=== PATIENT | male | born 1960 | race Caucasian/White ===

== ENCOUNTER 2017-06-17 12:05 | Inpatient (IN) | payer BC ==
[~2017-06-17] VITALS: Ht 182.9 cm; Wt 81.6 kg
[2017-06-17 12:09] VITALS: BP_SYST 102
[2017-06-17] MEDS ORDERED: NS 1000 ML BAG IV ONE (12:30)
[2017-06-17] MEDS ORDERED: VANCOMYCIN HCL 1,000 MG in NS 250 ML IV ONE (12:30)
[2017-06-17] MEDS ORDERED: PIPERACILLIN/TAZO 3.375 GM in NS 50 ML IV ONE (12:45)
[2017-06-17] MEDS ORDERED: PIPERACILLIN/TAZOBACTAM 3.375 GM/VIAL (ZOSYN) IV ONE (13:04)
[2017-06-17 13:28] LABS: CALCIUM 8.8 mg/dL (8.4-11.0); CREATININE 1.86 mg/dL (0.55-1.30); INR 1.5 (0.80-1.20); POTASSIUM 4.8 mmol/L (3.5-5.1); PROTHROMBIN TIME 15.3 SECS (9.5-12.5)
[2017-06-17 13:33] LABS: HEMATOCRIT 35.8 % (36-54); HEMOGLOBIN 11.8 g/dL (14.0-18.0)
[2017-06-17 13:34] LABS: MEAN CORPUSCULAR HEMOGLOBIN 26 pg (27-31); MEAN CORPUSCULAR HGB CONC 33 % (32-36); MEAN CORPUSCULAR VOLUME 78 fL (79.0-98.0); PLATELET COUNT (AUTO) 604 K/uL (130-430); RED CELL DISTRIBUTION WIDTH 14.4 % (9.0-15.0)
[2017-06-17 13:43] LABS: ALBUMIN 1.8 g/dL (3.4-4.8); FREE T4 (FREE THYROXINE) 1.6 ng/dl (0.8-1.5); TOTAL BILIRUBIN 0.7 mg/dL (0.0-1.0)
[2017-06-17 13:44] LABS: THYROID STIMULATING HORMONE 0.54 uIu/mL (0.36-3.74)
[2017-06-17 13:50] LABS: BAND % (MANUAL) 3 % (0-6); LYMPHOCYTES % (MANUAL) 7 % (20-46); MONOCYTES % (MANUAL) 4 % (0-11)
[2017-06-17 13:51] LABS: BASOPHILS % (MANUAL) 0 % (0-2); EOSINOPHILS % (MANUAL) 0 % (0-7)
[2017-06-17] MEDS ORDERED: VANCOMYCIN HCL 1000 MG/VIAL IV ONE (14:07)
[2017-06-17 14:11] LABS: ERYTHROCYTE SEDIMENTATION RATE 86 MM/HR (0-15)
[2017-06-17 14:21] LABS: C-REACTIVE PROTEIN QUANT 46.9 mg/dL (0-0.5)
[2017-06-17] MEDS ORDERED: INSULIN REGULAR, HUMAN 10 UNITS/0.1 ML INJ IVP ONE (15:15)
[2017-06-17] MEDS ORDERED: INSULIN REGULAR, HUMAN 10 UNITS/0.1 ML INJ ONE (15:37)
[2017-06-17 16:39] LABS: BILIRUBIN,URINE NEGATIVE (NEGATIVE); BLOOD, URINE 2+ (NEGATIVE); CLARITY/URINE SL HAZY (CLEAR); COLOR,URINE AMBER (YELLOW); GLUCOSE,URINE 2+ (NEGATIVE); KETONES,URINE TRACE (NEGATIVE); LEUKOCYTE ESTERASE ,URINE NEGATIVE (NEGATIVE); NITRITE, URINE NEGATIVE (NEGATIVE); PH,URINE 5.5 (5.0-8.0); PROTEIN URINE 1+ (NEGATIVE)
[2017-06-17 16:54] LABS: BACTERIA,URINE MODERATE /HPF (None Seen); WBC,URINE 0-3 /HPF (0-3)
[2017-06-17 16:55] LABS: COARSE GRANULAR CASTS,URINE 0-2 /LPF (None Seen); URINE AMORPHOUS URATE 2+ /HPF (None Seen)
[2017-06-17] MEDS ORDERED: COMMUNICATION ORDER XX ONE (17:00)
[2017-06-17] MEDS ORDERED: FAMOTIDINE 20 MG TABLET PO ONE (17:00)
[2017-06-17] MEDS ORDERED: ASPIRIN 81 MG TABLET(ECOTRIN) PO ONE (17:00)
[2017-06-17 17:03] VITALS: BP_SYST 124
[2017-06-17 18:03] LABS: TOTAL IRON BIND. CAPACITY 152 ug/dL (250-450)
[2017-06-17] MEDS: PIPERACILLIN/TAZO 2.25G/DEX-IS 50 ML IV SCH (18:42)
[2017-06-17] MEDS: NACL 0.9% 1,000 ML IV SCH (18:43)
[2017-06-17] MEDS: INSULIN ASPART 100 UNITS/ML, 10 ML VIAL (NovoLOG) SUBCUT PRN ×2 (18:45→21:38)
[2017-06-17 20:00] VITALS: BP_SYST 135
[2017-06-17 23:58] VITALS: BP_SYST 121
[2017-06-18] VITALS (7 sets, daily range): BP systolic 107–156
[2017-06-18] MEDS: PIPERACILLIN/TAZO 2.25G/DEX-IS 50 ML IV SCH ×4 (00:25→18:25)
[2017-06-18] MEDS: INSULIN ASPART 100 UNITS/ML, 10 ML VIAL (NovoLOG) SUBCUT PRN ×4 (06:25→21:45)
[2017-06-18 07:30] LABS: EOSINOPHILS % (AUTO) 0.1 % (0.0-4.0); HEMATOCRIT 29.2 % (36-54); HEMOGLOBIN 9.9 g/dL (14.0-18.0); LYMPHOCYTES # (AUTO) 1.6 K/uL (1.0-5.5); LYMPHOCYTES % (AUTO) 5.3 % (20.5-51.5); MEAN CORPUSCULAR HEMOGLOBIN 26 pg (27-31); MEAN CORPUSCULAR HGB CONC 34 % (32-36); MEAN CORPUSCULAR VOLUME 77 fL (79.0-98.0); MONOCYTES % (AUTO) 6.3 % (1.7-9.3); NEUTROPHILS # (AUTO) 27.4 K/uL (1.8-7.7); NEUTROPHILS % (AUTO) 88.3 % (40.0-70.0); PLATELET COUNT (AUTO) 469 K/uL (130-430); RED BLOOD CELL COUNT(AUTO) 3.79 MIL/uL (4.2-6.2); RED CELL DISTRIBUTION WIDTH 14.4 % (9.0-15.0)
[2017-06-18 07:53] LABS: ALBUMIN 1.3 g/dL (3.4-4.8); BILIRUBIN,DIRECT 0.4 mg/dL (0.0-0.3); CALCIUM 8.1 mg/dL (8.4-11.0); CREATININE 1.23 mg/dL (0.55-1.30); TOTAL BILIRUBIN 0.6 mg/dL (0.0-1.0)
[2017-06-18] MEDS: ASPIRIN 81 MG TABLET(ECOTRIN) PO SCH (08:54)
[2017-06-18] MEDS: FAMOTIDINE 20 MG TABLET PO SCH (08:54)
[2017-06-18] MEDS ORDERED: FERROUS SULFATE 325 MG TABLET.DR PO ONE (11:15)
[2017-06-18] MEDS: BALSAM PERU/CASTOR OIL 60 GM OINT...G. TP SCH (11:56)
[2017-06-18] MEDS: CLINDAMYCIN 600 MG in D5W 50 ML IV SCH ×2 (12:58→17:39)
[2017-06-18] MEDS: NACL 0.9% 1,000 ML IV SCH ×2 (16:26→20:07)
[2017-06-18] MEDS ORDERED: INSULIN GLARGINE 100 UNITS/ML 10 ML VIAL SUBCUT SCH (21:00)
[2017-06-18] MEDS: FERROUS SULFATE 325 MG TABLET.DR PO SCH (21:37)
[2017-06-18] MEDS: ACETAMINOPHEN 325 MG TABLET PO PRN (21:38)
[2017-06-19] MEDS: PIPERACILLIN/TAZO 2.25G/DEX-IS 50 ML IV SCH ×4 (00:22→19:16)
[2017-06-19] MEDS: CLINDAMYCIN 600 MG in D5W 50 ML IV SCH ×4 (00:23→17:34)
[2017-06-19 03:56] VITALS: BP_SYST 100
[2017-06-19 07:05] LABS: BASOPHILS % (AUTO) 0.1 % (0.0-2.0); EOSINOPHILS % (AUTO) 0.1 % (0.0-4.0); HEMATOCRIT 28.7 % (36-54); HEMOGLOBIN 9.6 g/dL (14.0-18.0); LYMPHOCYTES # (AUTO) 1.8 K/uL (1.0-5.5); MEAN CORPUSCULAR HEMOGLOBIN 26 pg (27-31); MEAN CORPUSCULAR HGB CONC 34 % (32-36); MEAN CORPUSCULAR VOLUME 78 fL (79.0-98.0); MONOCYTES # (AUTO) 0.8 K/uL (0.0-1.0); MONOCYTES % (AUTO) 2.2 % (1.7-9.3); NEUTROPHILS # (AUTO) 33.9 K/uL (1.8-7.7); PLATELET COUNT (AUTO) 561 K/uL (130-430); RED CELL DISTRIBUTION WIDTH 14.3 % (9.0-15.0)
[2017-06-19] MEDS: INSULIN ASPART 100 UNITS/ML, 10 ML VIAL (NovoLOG) SUBCUT PRN (07:06)
[2017-06-19 07:13] LABS: CALCIUM 8.1 mg/dL (8.4-11.0); CREATININE 1.18 mg/dL (0.55-1.30); POTASSIUM 3.6 mmol/L (3.5-5.1)
[2017-06-19 07:44] LABS: WHITE BLOOD COUNT (AUTO) 36.5 K/uL (4.8-10.8)
[2017-06-19 08:28] VITALS: BP_SYST 85
[2017-06-19] MEDS ORDERED: CYANOCOBALAMIN 1000 mCg TABLET PO ONE (09:45)
[2017-06-19] MEDS ORDERED: FOLIC ACID 1 MG TABLET PO ONE (09:45)
[2017-06-19 10:22] LABS: NEUTROPHILS % (AUTO) 92.6 % (40.0-70.0)
[2017-06-19] MEDS: POTASSIUM CHLORIDE 10 MEQ in NACL 0.9% 1,000 ML IV SCH (10:37)
[2017-06-19 11:14] LABS: % FREE PSA 8.3 % (.); FREE PSA 0.05 ng/mL; PROSTATE SPECIFIC AG TOTAL 0.6 ng/mL (0.0-4.0)
[2017-06-19] MEDS: FAMOTIDINE 20 MG TABLET PO SCH (11:22)
[2017-06-19] MEDS: ASPIRIN 81 MG TABLET(ECOTRIN) PO SCH (11:22)
[2017-06-19] MEDS: FERROUS SULFATE 325 MG TABLET.DR PO SCH ×2 (11:22→21:24)
[2017-06-19 12:54] VITALS: BP_SYST 132
[2017-06-19] MEDS: FLUCONAZOLE 200 mg/ NS 100 ML IV SCH (14:27)
[2017-06-19 16:44] VITALS: BP_SYST 139
[2017-06-19] MEDS: BALSAM PERU/CASTOR OIL 60 GM OINT...G. TP SCH (17:11)
[2017-06-19 19:45] VITALS: BP_SYST 94
[2017-06-20] MEDS: CLINDAMYCIN 600 MG in D5W 50 ML IV SCH ×5 (00:10→23:48)
[2017-06-20 00:57] VITALS: BP_SYST 91
[2017-06-20] MEDS: PIPERACILLIN/TAZO 2.25G/DEX-IS 50 ML IV SCH ×5 (00:58→23:06)
[2017-06-20] MEDS: POTASSIUM CHLORIDE 10 MEQ in NACL 0.9% 1,000 ML IV SCH ×4 (00:58→17:43)
[2017-06-20 06:42] LABS: HEMATOCRIT 28.3 % (36-54); HEMOGLOBIN 9.5 g/dL (14.0-18.0); MEAN CORPUSCULAR HEMOGLOBIN 26 pg (27-31); MEAN CORPUSCULAR HGB CONC 34 % (32-36); MEAN CORPUSCULAR VOLUME 78 fL (79.0-98.0); PLATELET COUNT (AUTO) 616 K/uL (130-430); RED BLOOD CELL COUNT(AUTO) 3.62 MIL/uL (4.2-6.2); RED CELL DISTRIBUTION WIDTH 14.9 % (9.0-15.0)
[2017-06-20 06:56] LABS: WHITE BLOOD COUNT (AUTO) 31.6 K/uL (4.8-10.8)
[2017-06-20 07:00] LABS: CALCIUM 8.1 mg/dL (8.4-11.0); CREATININE 1.38 mg/dL (0.55-1.30); POTASSIUM 3.8 mmol/L (3.5-5.1)
[2017-06-20 08:13] LABS: BAND % (MANUAL) 8 % (0-6); BASOPHILS % (MANUAL) 0 % (0-2); EOSINOPHILS % (MANUAL) 0 % (0-7); LYMPHOCYTES % (MANUAL) 4 % (20-46); MONOCYTES % (MANUAL) 1 % (0-11)
[2017-06-20] MEDS: CYANOCOBALAMIN 1000 mCg TABLET PO SCH (09:00)
[2017-06-20] MEDS: FOLIC ACID 1 MG TABLET PO SCH (09:00)
[2017-06-20] MEDS: FAMOTIDINE 20 MG TABLET PO SCH (09:00)
[2017-06-20] MEDS: ASPIRIN 81 MG TABLET(ECOTRIN) PO SCH (09:00)
[2017-06-20] MEDS: BALSAM PERU/CASTOR OIL 60 GM OINT...G. TP SCH (09:00)
[2017-06-20] MEDS: FERROUS SULFATE 325 MG TABLET.DR PO SCH ×2 (09:00→20:00)
[2017-06-20 09:11] VITALS: BP_SYST 104
[2017-06-20 11:31] VITALS: BP_SYST 111
[2017-06-20] MEDS: FLUCONAZOLE 200 mg/ NS 100 ML IV SCH (13:40)
[2017-06-20] MEDS ORDERED: LR 1,000 ML IV ONE (15:17)
[2017-06-20] MEDS ORDERED: ePHEDrine sulfate 50 MG/ML VIAL IVP PRN (15:30)
[2017-06-20] MEDS ORDERED: NALBUPHINE HCL 10 MG/ML AMP IVP PRN (15:30)
[2017-06-20] MEDS ORDERED: fentaNYL CITRATE/PF 100 MCG/2 ML AMP IVP PRN (15:30)
[2017-06-20] MEDS ORDERED: DIPHENHYDRAMINE INJ 50 MG/ML VIAL IVP PRN (15:30)
[2017-06-20] MEDS ORDERED: ONDANSETRON HCL 4 MG/2 ML VIAL IVP PRN ×2 (15:30)
[2017-06-20] MEDS ORDERED: NALOXONE HCL 0.4 MG/ML AMP (NARCAN) IVP PRN (15:30)
[2017-06-20] MEDS ORDERED: fentaNYL CITRATE/PF 100 MCG/2 ML AMP IVP ONE (18:35)
[2017-06-20] MEDS ORDERED: ROCURONIUM BROMIDE 10 MG/ML (ZEMURON) IV ONE (18:35)
[2017-06-20] MEDS ORDERED: LR 1,000 ML IV.SOLN IV ONE (18:35)
[2017-06-20] MEDS ORDERED: METOCLOPRAMIDE HCL 10 MG/2 ML VIAL IVP ONE (18:35)
[2017-06-20] MEDS ORDERED: MIDAZOLAM HCL 5 MG/ML VIAL (VERSED) IV ONE (18:35)
[2017-06-20] MEDS ORDERED: SEVOFLURANE 15 MIN GAS INH ONE (18:35)
[2017-06-20] MEDS ORDERED: FLUCONAZOLE 200 mg/ NS 100 mL IVPB IV ONE (18:35)
[2017-06-20] MEDS ORDERED: NS IRRIG SOLN 1000 ML IR ONE (18:35)
[2017-06-20] MEDS ORDERED: PROPOFOL 200MG/ 20ML VIAL (DIPRIVAN) IV ONE (18:35)
[2017-06-20] MEDS: ACETAMINOPHEN 325 MG TABLET PO PRN (20:00)
[2017-06-20] MEDS: ZOLPIDEM TARTRATE 5 MG TABLET PO PRN (20:00)
[2017-06-21] VITALS (7 sets, daily range): BP systolic 116–156
[2017-06-21] MEDS: PIPERACILLIN/TAZO 2.25G/DEX-IS 50 ML IV SCH ×4 (05:27→23:05)
[2017-06-21] MEDS: ACETAMINOPHEN 325 MG TABLET PO PRN (06:01)
[2017-06-21] MEDS: CLINDAMYCIN 600 MG in D5W 50 ML IV SCH ×4 (06:26→23:46)
[2017-06-21 06:47] LABS: BASOPHILS % (AUTO) 0.1 % (0.0-2.0); EOSINOPHILS # (AUTO) 0.1 K/uL (0.0-0.4); EOSINOPHILS % (AUTO) 0.3 % (0.0-4.0); HEMATOCRIT 29.8 % (36-54); HEMOGLOBIN 9.8 g/dL (14.0-18.0); LYMPHOCYTES # (AUTO) 2.6 K/uL (1.0-5.5); LYMPHOCYTES % (AUTO) 10.5 % (20.5-51.5); MEAN CORPUSCULAR HEMOGLOBIN 26 pg (27-31); MEAN CORPUSCULAR HGB CONC 33 % (32-36); MEAN CORPUSCULAR VOLUME 79 fL (79.0-98.0); MONOCYTES # (AUTO) 0.7 K/uL (0.0-1.0); NEUTROPHILS # (AUTO) 20.9 K/uL (1.8-7.7); NEUTROPHILS % (AUTO) 86.1 % (40.0-70.0); PLATELET COUNT (AUTO) 742 K/uL (130-430); RED BLOOD CELL COUNT(AUTO) 3.76 MIL/uL (4.2-6.2); WHITE BLOOD COUNT (AUTO) 24.3 K/uL (4.8-10.8)
[2017-06-21 07:04] LABS: CALCIUM 8.1 mg/dL (8.4-11.0); CREATININE 1.3 mg/dL (0.55-1.30); POTASSIUM 3.7 mmol/L (3.5-5.1)
[2017-06-21] MEDS: FERROUS SULFATE 325 MG TABLET.DR PO SCH ×2 (09:33→20:00)
[2017-06-21] MEDS: BALSAM PERU/CASTOR OIL 60 GM OINT...G. TP SCH (09:33)
[2017-06-21] MEDS: CYANOCOBALAMIN 1000 mCg TABLET PO SCH (09:33)
[2017-06-21] MEDS: FOLIC ACID 1 MG TABLET PO SCH (09:33)
[2017-06-21] MEDS: FAMOTIDINE 20 MG TABLET PO SCH (09:33)
[2017-06-21] MEDS: ASPIRIN 81 MG TABLET(ECOTRIN) PO SCH (09:33)
[2017-06-21] MEDS: POTASSIUM CHLORIDE 10 MEQ in NACL 0.9% 1,000 ML IV SCH (12:08)
[2017-06-21] MEDS: FLUCONAZOLE 200 mg/ NS 100 ML IV SCH (12:11)
[2017-06-21] MEDS: ZOLPIDEM TARTRATE 5 MG TABLET PO PRN (20:00)
[2017-06-21] MEDS: INSULIN ASPART 100 UNITS/ML, 10 ML VIAL (NovoLOG) SUBCUT PRN (20:17)
[2017-06-22] MEDS: POTASSIUM CHLORIDE 10 MEQ in NACL 0.9% 1,000 ML IV SCH ×3 (00:04→20:09)
[2017-06-22 00:42] VITALS: BP_SYST 145
[2017-06-22 04:34] VITALS: BP_SYST 152
[2017-06-22] MEDS: PIPERACILLIN/TAZO 2.25G/DEX-IS 50 ML IV SCH ×4 (05:19→23:05)
[2017-06-22] MEDS: CLINDAMYCIN 600 MG in D5W 50 ML IV SCH ×4 (05:55→23:44)
[2017-06-22] MEDS: BALSAM PERU/CASTOR OIL 60 GM OINT...G. TP SCH (09:00)
[2017-06-22] MEDS: ASPIRIN 81 MG TABLET(ECOTRIN) PO SCH (09:02)
[2017-06-22] MEDS: FERROUS SULFATE 325 MG TABLET.DR PO SCH ×2 (09:02→20:42)
[2017-06-22] MEDS: CYANOCOBALAMIN 1000 mCg TABLET PO SCH (09:02)
[2017-06-22] MEDS: FOLIC ACID 1 MG TABLET PO SCH (09:03)
[2017-06-22] MEDS: FAMOTIDINE 20 MG TABLET PO SCH (09:03)
[2017-06-22] MEDS: MORPHINE 2 MG/ML INJ. SYRINGE IVP PRN (09:11)
[2017-06-22 12:29] VITALS: BP_SYST 145
[2017-06-22] MEDS: FLUCONAZOLE 200 mg/ NS 100 ML IV SCH (14:27)
[2017-06-22 16:33] VITALS: BP_SYST 139
[2017-06-22 20:00] VITALS: BP_SYST 110
[2017-06-22] MEDS: ZOLPIDEM TARTRATE 5 MG TABLET PO PRN (20:42)
[2017-06-22] MEDS: INSULIN ASPART 100 UNITS/ML, 10 ML VIAL (NovoLOG) SUBCUT PRN (20:47)
[2017-06-23] VITALS (7 sets, daily range): BP systolic 111–175
[2017-06-23] MEDS: POTASSIUM CHLORIDE 10 MEQ in NACL 0.9% 1,000 ML IV SCH (02:56)
[2017-06-23] MEDS: PIPERACILLIN/TAZO 2.25G/DEX-IS 50 ML IV SCH ×4 (05:35→23:20)
[2017-06-23] MEDS: CLINDAMYCIN 600 MG in D5W 50 ML IV SCH (06:23)
[2017-06-23] MEDS: FERROUS SULFATE 325 MG TABLET.DR PO SCH ×2 (08:37→21:44)
[2017-06-23] MEDS: CYANOCOBALAMIN 1000 mCg TABLET PO SCH (08:37)
[2017-06-23] MEDS: FOLIC ACID 1 MG TABLET PO SCH (08:37)
[2017-06-23] MEDS: ASPIRIN 81 MG TABLET(ECOTRIN) PO SCH (08:37)
[2017-06-23] MEDS: FAMOTIDINE 20 MG TABLET PO SCH (08:37)
[2017-06-23] MEDS: BALSAM PERU/CASTOR OIL 60 GM OINT...G. TP SCH (09:00)
[2017-06-23] MEDS ORDERED: cloNIDine HCL 0.1 MG TABLET PO PRN (10:15)
[2017-06-23 11:34] LABS: EOSINOPHILS # (AUTO) 0.1 K/uL (0.0-0.4); HEMOGLOBIN 9.8 g/dL (14.0-18.0); MONOCYTES # (AUTO) 0.7 K/uL (0.0-1.0); WHITE BLOOD COUNT (AUTO) 11.3 K/uL (4.8-10.8)
[2017-06-23 11:39] LABS: BASOPHILS % (AUTO) 0.1 % (0.0-2.0); CALCIUM 8.4 mg/dL (8.4-11.0); CREATININE 1.19 mg/dL (0.55-1.30); EOSINOPHILS % (AUTO) 0.9 % (0.0-4.0); HEMATOCRIT 30.5 % (36-54); LYMPHOCYTES # (AUTO) 2.1 K/uL (1.0-5.5); LYMPHOCYTES % (AUTO) 18.6 % (20.5-51.5); MEAN CORPUSCULAR HEMOGLOBIN 25 pg (27-31); MEAN CORPUSCULAR HGB CONC 32 % (32-36); MEAN CORPUSCULAR VOLUME 79 fL (79.0-98.0); MONOCYTES % (AUTO) 6.3 % (1.7-9.3); NEUTROPHILS # (AUTO) 8.4 K/uL (1.8-7.7); NEUTROPHILS % (AUTO) 74.1 % (40.0-70.0); POTASSIUM 4.8 mmol/L (3.5-5.1); RED BLOOD CELL COUNT(AUTO) 3.87 MIL/uL (4.2-6.2)
[2017-06-23 11:42] LABS: PLATELET COUNT (AUTO) 847 K/uL (130-430)
[2017-06-23] MEDS: FLUCONAZOLE 200 mg/ NS 100 ML IV SCH (13:00)
[2017-06-23] MEDS: CHOLECALCIFEROL (VITAMIN D3) 2,000 UNIT TABLET PO SCH (13:01)
[2017-06-24] VITALS (7 sets, daily range): BP systolic 108–134
[2017-06-24] MEDS: PIPERACILLIN/TAZO 2.25G/DEX-IS 50 ML IV SCH ×2 (06:18→15:55)
[2017-06-24] MEDS: FAMOTIDINE 20 MG TABLET PO SCH (10:25)
[2017-06-24] MEDS: CYANOCOBALAMIN 1000 mCg TABLET PO SCH (10:25)
[2017-06-24] MEDS: ASPIRIN 81 MG TABLET(ECOTRIN) PO SCH (10:25)
[2017-06-24] MEDS: CHOLECALCIFEROL (VITAMIN D3) 2,000 UNIT TABLET PO SCH (10:25)
[2017-06-24] MEDS: FERROUS SULFATE 325 MG TABLET.DR PO SCH (10:25)
[2017-06-24] MEDS: BALSAM PERU/CASTOR OIL 60 GM OINT...G. TP SCH (10:27)
[2017-06-24] MEDS: MORPHINE 2 MG/ML INJ. SYRINGE IVP PRN (10:27)
[2017-06-24] MEDS: FOLIC ACID 1 MG TABLET PO SCH (10:27)
[2017-06-24] MEDS: FLUCONAZOLE 200 mg/ NS 100 ML IV SCH (15:56)
== END 2017-06-24 18:36 | DRG 853 ==
LOC: SED 12:05 → STU 15:14 → SMU 21:29 → STU 06-20 17:00 → SMU 06-23 11:34
PROVIDERS: ADMIT Internal Medicine; ATTEND Internal Medicine
PROC: 0Y6H0Z2 Detachment at Right Lower Leg, Mid, Open Approach (ICD-10-PCS; principal; 2017-06-20 14:00)
DX: A41.9 Sepsis, unspecified organism (principal); E43 Unspecified severe protein-calorie malnutrition; M72.6 Necrotizing fasciitis; E11.51 Type 2 diabetes mellitus with diabetic peripheral angiopathy without gangrene; E87.1 Hypo-osmolality and hyponatremia; L03.115 Cellulitis of right lower limb; L97.419 Non-pressure chronic ulcer of right heel and midfoot with unspecified severity; E11.52 Type 2 diabetes mellitus with diabetic peripheral angiopathy with gangrene; D64.9 Anemia, unspecified; E11.9 Type 2 diabetes mellitus without complications; Z89.511 Acquired absence of right leg below knee; F17.210 Nicotine dependence, cigarettes, uncomplicated; Z68.24 Body mass index [BMI] 24.0-24.9, adult; Z22.321 Carrier or suspected carrier of Methicillin susceptible Staphylococcus aureus
CPT/HCPCS: 36415; 36600; 71010; 73552; 73590-TC; 73721; 76770; 80048; 80053; 80076; 81000-TC; 82306; 82607; 82728; 82746; 82803-TC; 82962; 83036; 83540-TC; 83550-TC; 83605; 83735-TC; 84153; 84439; 84443-TC; 85007; 85025; 85027; 85610-TC; 85651-TC; 85730-TC; 86140; 87040-TC; 87070-TC; 87075-TC; 87081; 87086; 87186-TC; 88307; 93005; 93923; 93971; 94010; 94760; 96365; 96366; 96367; 96375; 97110-GP; 97116-GP; 97530-GP; 99285; A6261; J1450; J1815; J2250; J2270; J2543; J2704; J2765; J3010; J3370; J3480; J3490; J7030; J7050; J7060; J7120

== ENCOUNTER 2024-05-27 12:05 | Inpatient (IN) | payer BC ==
[~2024-05-27] VITALS: Ht 182.9 cm; Wt 76.2 kg
[2024-05-27 12:34] VITALS: BP_SYST 122; PULSE 75; RESP 16; TEMP 97.8; O2SAT 95
[2024-05-27] MEDS ORDERED: CYAN100010 PO (12:35)
[2024-05-27] MEDS ORDERED: LOP600 PO (12:35)
[2024-05-27] MEDS ORDERED: [UNRECOGNIZED DRUG - OTHER] IJ (12:35)
[2024-05-27] MEDS ORDERED: NOR10 PO (12:35)
[2024-05-27] MEDS ORDERED: LIP40 PO (12:35)
[2024-05-27 15:22] LABS: BASOPHILS % (AUTO) 0.1 % (0.0-2.0); EOSINOPHILS % (AUTO) 0.1 % (0.0-4.0); HEMATOCRIT 26.8 % (36-54); HEMOGLOBIN 8.6 g/dL (14.0-18.0); LYMPHOCYTES % (AUTO) 2.7 % (20.5-51.5); MEAN CORPUSCULAR HEMOGLOBIN 27 pg (27-31); MEAN CORPUSCULAR HGB CONC 32 % (32-36); MEAN CORPUSCULAR VOLUME 85 fL (79.0-98.0); MONOCYTES # (AUTO) 1.9 K/uL (0.0-1.0); NEUTROPHILS # (AUTO) 35.5 K/uL (1.8-7.7); NEUTROPHILS % (AUTO) 92.1 % (40.0-70.0); PLATELET COUNT (AUTO) 445 K/uL (130-430); RED BLOOD CELL COUNT(AUTO) 3.14 MIL/uL (4.2-6.2); RED CELL DISTRIBUTION WIDTH 14.1 % (9.0-15.0)
[2024-05-27 15:30] LABS: WHITE BLOOD COUNT (AUTO) 38.5 K/uL (4.8-10.8)
[2024-05-27 15:55] LABS: INR 1.5 (0.80-1.20); PROTHROMBIN TIME 15.5 SECS (9.5-12.5)
[2024-05-27 16:13] LABS: ALANINE AMINOTRANSFERASE 7 U/L (12-78); ALBUMIN 2.6 g/dL (3.4-4.8); ANION GAP 29 (5-15); ASPARTATE AMINOTRANSFERASE 6 U/L (10-37); BILIRUBIN,DIRECT 0.2 mg/dL (0.0-0.3); CARBON DIOXIDE 11 mmol/L (23-29); CHLORIDE 92 mmol/L (98-107); GFR AFRICAN AMERICAN 3 mL/min (>90); GLUCOSE 146 mg/dL (74-106); POTASSIUM 4.7 mmol/L (3.5-5.1); SODIUM SERUM 132 mmol/L (136-145); TOTAL BILIRUBIN 0.4 mg/dL (0.0-1.0); TOTAL PROTEIN, SERUM 7.5 g/dL (6.4-8.3)
[2024-05-27 16:19] LABS: GFR NON AFRICAN-AMERICAN 2 mL/min (>90)
[2024-05-27] MEDS ORDERED: AMLO5TAB92 PO (16:25)
[2024-05-27] MEDS ORDERED: CHOL2000 PO (16:25)
[2024-05-27] MEDS ORDERED: ATOR40TA68 PO (16:25)
[2024-05-27] MEDS ORDERED: GEMF600T89 PO (16:25)
[2024-05-27 16:28] LABS: UREA NITROGEN, BLOOD 191 mg/dL (8-21)
[2024-05-27 16:29] LABS: CREATININE 23.11 mg/dL (0.55-1.30)
[2024-05-27] MEDS ORDERED: PIPERACILLIN/TAZOBACTAM 4.5 GM/VIAL (ZOSYN) IV ONE (16:39)
[2024-05-27] MEDS: PIPERACILLIN/TAZO 4.5GM/DEX-IS 100 ML IV SCH (16:48)
[2024-05-27] MEDS: D5/0.45 NS 1,000 ML IV SCH (17:29)
[2024-05-27 19:43] VITALS: BP_SYST 175; PULSE 78; RESP 20; TEMP 97.9
[2024-05-27 20:30] VITALS: O2SAT 98
[2024-05-27] MEDS ORDERED: NALOXONE HCL 0.4 MG/ML AMP (NARCAN) IVP PRN ×2 (22:00)
[2024-05-27] MEDS: hydrALAZINE HCL 25 MG TABLET PO PRN (22:12)
[2024-05-27] MEDS: HYDROcodone/ACETAMIN 5-325 MG TAB (NORCO/ VICODIN) PO PRN (23:14)
[2024-05-28 01:51] VITALS: BP_SYST 144; PULSE 82; RESP 18; TEMP 97.6; O2SAT 97
[2024-05-28 04:27] LABS: BASOPHILS % (AUTO) 0.1 % (0.0-2.0); EOSINOPHILS # (AUTO) 0.1 K/uL (0.0-0.4); EOSINOPHILS % (AUTO) 0.2 % (0.0-4.0); HEMOGLOBIN 7.9 g/dL (14.0-18.0); LYMPHOCYTES # (AUTO) 1.2 K/uL (1.0-5.5); LYMPHOCYTES % (AUTO) 3.2 % (20.5-51.5); MEAN CORPUSCULAR HEMOGLOBIN 27 pg (27-31); MEAN CORPUSCULAR HGB CONC 32 % (32-36); MEAN CORPUSCULAR VOLUME 85 fL (79.0-98.0); MONOCYTES # (AUTO) 2.1 K/uL (0.0-1.0); MONOCYTES % (AUTO) 5.4 % (1.7-9.3); NEUTROPHILS % (AUTO) 91.1 % (40.0-70.0); PLATELET COUNT (AUTO) 385 K/uL (130-430); RED BLOOD CELL COUNT(AUTO) 2.95 MIL/uL (4.2-6.2); RED CELL DISTRIBUTION WIDTH 13.8 % (9.0-15.0)
[2024-05-28 04:38] LABS: WHITE BLOOD COUNT (AUTO) 38.4 K/uL (4.8-10.8)
[2024-05-28 06:08] LABS: ALBUMIN 2.3 g/dL (3.4-4.8); CALCIUM 7.8 mg/dL (8.4-11.0); PHOSPHORUS 12.7 mg/dL (2.7-4.5); POTASSIUM 4.7 mmol/L (3.5-5.1); TOTAL BILIRUBIN 0.4 mg/dL (0.0-1.0); TOTAL PROTEIN, SERUM 6.7 g/dL (6.4-8.3)
[2024-05-28 06:27] LABS: CREATININE 23.97 mg/dL (0.55-1.30)
[2024-05-28] MEDS: HYDROcodone/ACETAMIN 10-325 MG TAB PO PRN (06:55)
[2024-05-28 07:54] VITALS: BP_SYST 137; PULSE 84; RESP 20; TEMP 97.7; O2SAT 98
[2024-05-28 08:00] VITALS: O2SAT 98
[2024-05-28 10:41] LABS: INR 1.4 (0.80-1.20); PROTHROMBIN TIME 15.1 SECS (9.5-12.5)
[2024-05-28] MEDS: CYANOCOBALAMIN (VITAMIN B-12) 1,000 MCG TABLET PO SCH (10:52)
[2024-05-28] MEDS: GEMFIBROZIL 600 MG TABLET (LOPID) PO SCH (10:53)
[2024-05-28] MEDS: CHOLECALCIFEROL (VITAMIN D3) 2,000 UNIT TABLET PO SCH (10:53)
[2024-05-28] MEDS: amLODIPine BESYLATE 10 MG TABLET PO SCH (10:53)
[2024-05-28] MEDS: LINEZOLID 300 ML IV SCH (10:54)
[2024-05-28] MEDS: CALCIUM ACETATE 667 MG CAP PO SCH (13:10)
[2024-05-28 14:19] VITALS: BP_SYST 142; PULSE 83; RESP 19; TEMP 97.7; O2SAT 98
[2024-05-28 16:50] VITALS: BP_SYST 114; PULSE 71; RESP 18; TEMP 97.5; O2SAT 96
[2024-05-28] MEDS: HEPARIN SODIUM,PORCINE 5,000 UNITS/ML VIAL ONE (18:39)
[2024-05-28] MEDS: HEPARIN SODIUM,PORCINE 5,000 UNITS/ML VIAL IV ONE (18:41)
[2024-05-28 20:00] VITALS: BP_SYST 161; PULSE 83; RESP 18; TEMP 98.4; O2SAT 98
[2024-05-28] MEDS: ATORVASTATIN 20 MG TABLET PO SCH (20:22)
[2024-05-28] MEDS: CEFEPIME 1 GM in D5W 50 ML IV SCH (20:23)
[2024-05-28] MEDS: LORazepam 2 MG/ML VIAL IVP PRN (23:16)
[2024-05-29] VITALS: BP_SYST 102; PULSE 83; RESP 18; TEMP 97.9; O2SAT 97
[2024-05-29] MEDS: INSULIN LISPRO SLIDING SCALE 100 UNITS/ML, 3 ML VIAL (humaLOG) SUBCUT PRN (06:18)
[2024-05-29] MEDS: ONDANSETRON HCL 4 MG/2 ML VIAL IVP PRN (06:56)
[2024-05-29 08:00] VITALS: BP_SYST 102; PULSE 83; RESP 18; TEMP 98.4; O2SAT 96; O2SAT 99
[2024-05-29 08:06] LABS: EOSINOPHILS # (AUTO) 0.1 K/uL (0.0-0.4); EOSINOPHILS % (AUTO) 0.4 % (0.0-4.0); HEMOGLOBIN 7.7 g/dL (14.0-18.0); LYMPHOCYTES # (AUTO) 1.4 K/uL (1.0-5.5); LYMPHOCYTES % (AUTO) 3.4 % (20.5-51.5); MEAN CORPUSCULAR HEMOGLOBIN 27 pg (27-31); MEAN CORPUSCULAR HGB CONC 32 % (32-36); MEAN CORPUSCULAR VOLUME 84 fL (79.0-98.0); MONOCYTES # (AUTO) 2.3 K/uL (0.0-1.0); MONOCYTES % (AUTO) 5.9 % (1.7-9.3); NEUTROPHILS # (AUTO) 35.8 K/uL (1.8-7.7); NEUTROPHILS % (AUTO) 90.3 % (40.0-70.0); PLATELET COUNT (AUTO) 428 K/uL (130-430); RED BLOOD CELL COUNT(AUTO) 2.86 MIL/uL (4.2-6.2)
[2024-05-29 08:14] LABS: WHITE BLOOD COUNT (AUTO) 39.6 K/uL (4.8-10.8)
[2024-05-29 08:15] LABS: ERYTHROCYTE SEDIMENTATION RATE 59 MM/HR (0-15)
[2024-05-29 08:25] LABS: CALCIUM 7.6 mg/dL (8.4-11.0); PHOSPHORUS 6.9 mg/dL (2.7-4.5); POTASSIUM 3.2 mmol/L (3.5-5.1)
[2024-05-29] MEDS: PANTOPRAZOLE SODIUM 40 MG/VIAL (PROTONIX) IVP SCH (09:11)
[2024-05-29 09:27] LABS: CREATININE 15.07 mg/dL (0.55-1.30)
[2024-05-29 11:45] VITALS: BP_SYST 131; PULSE 65; RESP 20; TEMP 97.4; O2SAT 98
[2024-05-29] MEDS: HEPARIN SODIUM,PORCINE 5,000 UNITS/ML VIAL MC ONE (18:06)
[2024-05-29 20:00] VITALS: BP_SYST 130; PULSE 74; RESP 18; TEMP 97.7; O2SAT 97
[2024-05-30] VITALS (7 sets, daily range): BP systolic 122–161; PULSE 71–81; RESP 16–18; TEMP 97–99.1; O2SAT 97–99
[2024-05-30 08:07] LABS: HEMATOCRIT 22.3 % (36-54); HEMOGLOBIN 7.2 g/dL (14.0-18.0); MEAN CORPUSCULAR HEMOGLOBIN 27 pg (27-31); MEAN CORPUSCULAR HGB CONC 32 % (32-36); MEAN CORPUSCULAR VOLUME 83 fL (79.0-98.0); PLATELET COUNT (AUTO) 360 K/uL (130-430); RED BLOOD CELL COUNT(AUTO) 2.68 MIL/uL (4.2-6.2)
[2024-05-30 08:29] LABS: CALCIUM 7.5 mg/dL (8.4-11.0); POTASSIUM 3.4 mmol/L (3.5-5.1)
[2024-05-30 09:07] LABS: WHITE BLOOD COUNT (AUTO) 30.8 K/uL (4.8-10.8)
[2024-05-30 09:10] LABS: CREATININE 12.18 mg/dL (0.55-1.30)
[2024-05-30 11:00] LABS: BASOPHILS % (MANUAL) 0 % (0-2); EOSINOPHILS % (MANUAL) 0 % (0-7); HYPOCHROMASIA SLIGHT; LYMPHOCYTES % (MANUAL) 5 % (20-46); MONOCYTES % (MANUAL) 7 % (0-11); PLATELET ESTIMATE ADEQUATE (ADEQUATE)
[2024-05-30 11:01] LABS: STOMATOCYTES FEW
[2024-05-30] MEDS ORDERED: CALCIUM GLUCONATE 2 GM in NS 100 ML IV ONE (14:00)
[2024-05-30] MEDS: NORMAL SALINE 5 ML DISP.SYRIN IVF SCH (15:14)
[2024-05-30] MEDS: POTASSIUM CHLORIDE 20 MEQ TABLET.ER PO ONE (15:42)
[2024-05-30] MEDS: HEPARIN SODIUM, PORCINE 10,000 UNITS/ 10 ML VIAL MC ONE (15:45)
[2024-05-30] MEDS: HEPARIN SODIUM,PORCINE 5,000 UNITS/ML VIAL MC ONE (17:27)
[2024-05-30] MEDS: CALCIUM GLUC 2 GM/100ML-NACL 100 ML IV ONE (18:32)
[2024-05-31 00:44] VITALS: BP_SYST 155; PULSE 84; RESP 16; TEMP 97.6; O2SAT 94
[2024-05-31 06:17] LABS: ERYTHROCYTE SEDIMENTATION RATE 67 MM/HR (0-15)
[2024-05-31 06:22] LABS: ALBUMIN 1.9 g/dL (3.4-4.8); CALCIUM 8.1 mg/dL (8.4-11.0); CREATININE 7.4 mg/dL (0.55-1.30); PHOSPHORUS 3.8 mg/dL (2.7-4.5); POTASSIUM 3.7 mmol/L (3.5-5.1); TOTAL BILIRUBIN 0.2 mg/dL (0.0-1.0); TOTAL PROTEIN, SERUM 6.2 g/dL (6.4-8.3)
[2024-05-31 06:25] LABS: BASOPHILS % (AUTO) 0.1 % (0.0-2.0); EOSINOPHILS # (AUTO) 0.5 K/uL (0.0-0.4); EOSINOPHILS % (AUTO) 1.9 % (0.0-4.0); HEMATOCRIT 25.9 % (36-54); HEMOGLOBIN 8.4 g/dL (14.0-18.0); LYMPHOCYTES # (AUTO) 1.8 K/uL (1.0-5.5); LYMPHOCYTES % (AUTO) 6.8 % (20.5-51.5); MEAN CORPUSCULAR HEMOGLOBIN 27 pg (27-31); MEAN CORPUSCULAR HGB CONC 32 % (32-36); MEAN CORPUSCULAR VOLUME 84 fL (79.0-98.0); MONOCYTES # (AUTO) 2.4 K/uL (0.0-1.0); NEUTROPHILS # (AUTO) 21.9 K/uL (1.8-7.7); PLATELET COUNT (AUTO) 363 K/uL (130-430); RED BLOOD CELL COUNT(AUTO) 3.09 MIL/uL (4.2-6.2); RED CELL DISTRIBUTION WIDTH 13.5 % (9.0-15.0); WHITE BLOOD COUNT (AUTO) 26.7 K/uL (4.8-10.8)
[2024-05-31 07:46] VITALS: BP_SYST 138; PULSE 74; RESP 16; TEMP 97.7; O2SAT 96
[2024-05-31 08:00] VITALS: O2SAT 96
[2024-05-31 08:12] LABS: NEUTROPHILS % (AUTO) 82.2 % (40.0-70.0)
[2024-05-31 12:00] VITALS: BP_SYST 140; PULSE 80; RESP 17; TEMP 97.8; O2SAT 97
[2024-05-31] MEDS ORDERED: LR 1,000 ML IV.SOLN IV ONE (12:00)
[2024-05-31] MEDS ORDERED: PROPOFOL 200MG/ 20ML VIAL (DIPRIVAN) IV ONE (12:00)
[2024-05-31] MEDS ORDERED: fentaNYL CITRATE/PF 100 MCG/2 ML AMP ONE (12:00)
[2024-05-31] MEDS ORDERED: MIDAZOLAM HCL 2 MG/2 ML VIAL (VERSED) ONE (12:00)
[2024-05-31] MEDS ORDERED: LIDOCAINE HCL IJ ONE (12:00)
[2024-05-31] MEDS ORDERED: BUPIVACAINE /PF 0.25% 10 ML VIAL INJ ONE (12:00)
[2024-05-31] MEDS ORDERED: NS IRRIG SOLN 1000 ML IR ONE (12:00)
[2024-05-31] MEDS ORDERED: [UNRECOGNIZED DRUG - OTHER] IJ ONE (12:00)
[2024-05-31] MEDS ORDERED: MEPERIDINE HCL/PF 25 MG/ML DISP.SYRIN IVP PRN (12:30)
[2024-05-31] MEDS ORDERED: HYDROmorphone 1 MG/ML INJ. CARTRIDGE IVP PRN ×2 (12:30)
[2024-05-31] MEDS ORDERED: ONDANSETRON HCL 4 MG/2 ML VIAL IVP PRN (12:30)
[2024-05-31] MEDS ORDERED: LABETALOL 100 MG/ 20ML VIAL IVP PRN (12:30)
[2024-05-31] MEDS ORDERED: hydrALAZINE HCL 20 MG/ML VIAL IVP PRN (12:30)
[2024-05-31 16:33] VITALS: BP_SYST 139; PULSE 76; RESP 16; TEMP 97.6; O2SAT 97
[2024-05-31] MEDS: NAFCILLIN SODIUM 2 GM in NS 100 ML IV SCH (18:18)
[2024-05-31 20:00] VITALS: BP_SYST 123; PULSE 79; RESP 16; TEMP 97.4; O2SAT 99
[2024-05-31] MEDS: NACL 0.9% 1,000 ML IV SCH (21:28)
[2024-06-01] VITALS (7 sets, daily range): BP systolic 116–157; PULSE 74–77; RESP 16–18; TEMP 97.3–98.8; O2SAT 96–99
[2024-06-01 04:07] LABS: HEPATITIS A AB, IgM Negative (Negative); HEPATITIS B CORE AB, IgM Negative (Negative); HEPATITIS B SURFACE AG Negative (Negative); HEPATITIS Be AG Negative (Negative); HEPATITIS C VIRUS AB Non Reactive (Non Reactive)
[2024-06-01 06:35] LABS: BASOPHILS # (AUTO) 0.1 K/uL (0.0-0.2); BASOPHILS % (AUTO) 0.3 % (0.0-2.0); EOSINOPHILS # (AUTO) 0.7 K/uL (0.0-0.4); EOSINOPHILS % (AUTO) 3.1 % (0.0-4.0); HEMATOCRIT 25.7 % (36-54); HEMOGLOBIN 8.4 g/dL (14.0-18.0); LYMPHOCYTES # (AUTO) 1.9 K/uL (1.0-5.5); LYMPHOCYTES % (AUTO) 8.7 % (20.5-51.5); MEAN CORPUSCULAR HEMOGLOBIN 28 pg (27-31); MEAN CORPUSCULAR HGB CONC 33 % (32-36); MEAN CORPUSCULAR VOLUME 84 fL (79.0-98.0); MONOCYTES # (AUTO) 1.6 K/uL (0.0-1.0); MONOCYTES % (AUTO) 7.4 % (1.7-9.3); NEUTROPHILS # (AUTO) 17.5 K/uL (1.8-7.7); PLATELET COUNT (AUTO) 386 K/uL (130-430); RED BLOOD CELL COUNT(AUTO) 3.04 MIL/uL (4.2-6.2); RED CELL DISTRIBUTION WIDTH 13.9 % (9.0-15.0); WHITE BLOOD COUNT (AUTO) 21.7 K/uL (4.8-10.8)
[2024-06-01 07:15] LABS: PHOSPHORUS 4.8 mg/dL (2.7-4.5); POTASSIUM 3.6 mmol/L (3.5-5.1)
[2024-06-01 07:41] LABS: CREATININE 8.76 mg/dL (0.55-1.30)
[2024-06-01 08:01] LABS: NEUTROPHILS % (AUTO) 80.5 % (40.0-70.0)
[2024-06-01 08:03] LABS: ERYTHROCYTE SEDIMENTATION RATE 123 MM/HR (0-15)
[2024-06-01] MEDS: HEPARIN SODIUM,PORCINE 5,000 UNITS/ML VIAL ONE (20:34)
[2024-06-01] MEDS: HEPARIN SODIUM,PORCINE 5,000 UNITS/ML VIAL IVP ONE (20:37)
[2024-06-02] VITALS (7 sets, daily range): BP systolic 128–172; PULSE 78–84; RESP 15–18; TEMP 97.5–98.4; O2SAT 95–100
[2024-06-02 06:37] LABS: ERYTHROCYTE SEDIMENTATION RATE 67 MM/HR (0-15)
[2024-06-02 06:42] LABS: BASOPHILS # (AUTO) 0.1 K/uL (0.0-0.2); BASOPHILS % (AUTO) 0.7 % (0.0-2.0); EOSINOPHILS # (AUTO) 0.6 K/uL (0.0-0.4); EOSINOPHILS % (AUTO) 2.9 % (0.0-4.0); HEMATOCRIT 25.7 % (36-54); HEMOGLOBIN 8.3 g/dL (14.0-18.0); LYMPHOCYTES # (AUTO) 2.1 K/uL (1.0-5.5); LYMPHOCYTES % (AUTO) 10.2 % (20.5-51.5); MEAN CORPUSCULAR HEMOGLOBIN 28 pg (27-31); MEAN CORPUSCULAR HGB CONC 32 % (32-36); MEAN CORPUSCULAR VOLUME 85 fL (79.0-98.0); MONOCYTES # (AUTO) 1.8 K/uL (0.0-1.0); MONOCYTES % (AUTO) 8.8 % (1.7-9.3); NEUTROPHILS # (AUTO) 15.5 K/uL (1.8-7.7); PLATELET COUNT (AUTO) 334 K/uL (130-430); RED BLOOD CELL COUNT(AUTO) 3.02 MIL/uL (4.2-6.2); RED CELL DISTRIBUTION WIDTH 13.9 % (9.0-15.0); WHITE BLOOD COUNT (AUTO) 20.1 K/uL (4.8-10.8)
[2024-06-02 07:10] LABS: ALBUMIN 2.2 g/dL (3.4-4.8); CREATININE 5.89 mg/dL (0.55-1.30); PHOSPHORUS 3.8 mg/dL (2.7-4.5); POTASSIUM 3.6 mmol/L (3.5-5.1); TOTAL BILIRUBIN 0.8 mg/dL (0.0-1.0); TOTAL PROTEIN, SERUM 6.5 g/dL (6.4-8.3)
[2024-06-02 07:49] LABS: NEUTROPHILS % (AUTO) 77.4 % (40.0-70.0)
[2024-06-03 01:15] VITALS: BP_SYST 132; PULSE 81; RESP 18; TEMP 97.1; O2SAT 64
[2024-06-03 06:13] LABS: ERYTHROCYTE SEDIMENTATION RATE 51 MM/HR (0-15)
[2024-06-03 06:17] LABS: BASOPHILS # (AUTO) 0.1 K/uL (0.0-0.2); BASOPHILS % (AUTO) 0.6 % (0.0-2.0); EOSINOPHILS # (AUTO) 0.7 K/uL (0.0-0.4); EOSINOPHILS % (AUTO) 4.2 % (0.0-4.0); HEMATOCRIT 22.3 % (36-54); HEMOGLOBIN 7.1 g/dL (14.0-18.0); LYMPHOCYTES # (AUTO) 2.3 K/uL (1.0-5.5); LYMPHOCYTES % (AUTO) 14.2 % (20.5-51.5); MEAN CORPUSCULAR HEMOGLOBIN 27 pg (27-31); MEAN CORPUSCULAR HGB CONC 32 % (32-36); MEAN CORPUSCULAR VOLUME 85 fL (79.0-98.0); MONOCYTES # (AUTO) 1.4 K/uL (0.0-1.0); MONOCYTES % (AUTO) 8.7 % (1.7-9.3); NEUTROPHILS # (AUTO) 11.7 K/uL (1.8-7.7); NEUTROPHILS % (AUTO) 72.3 % (40.0-70.0); PLATELET COUNT (AUTO) 311 K/uL (130-430); RED BLOOD CELL COUNT(AUTO) 2.62 MIL/uL (4.2-6.2); RED CELL DISTRIBUTION WIDTH 13.7 % (9.0-15.0); WHITE BLOOD COUNT (AUTO) 16.2 K/uL (4.8-10.8)
[2024-06-03 06:30] LABS: CALCIUM 8.1 mg/dL (8.4-11.0); PHOSPHORUS 5.2 mg/dL (2.7-4.5); POTASSIUM 3.8 mmol/L (3.5-5.1)
[2024-06-03 06:50] LABS: CREATININE 7.61 mg/dL (0.55-1.30)
[2024-06-03 08:23] VITALS: BP_SYST 126; PULSE 78; RESP 18; TEMP 98; O2SAT 99
[2024-06-03 08:54] VITALS: O2SAT 99
[2024-06-03] MEDS ORDERED: HEPARIN SODIUM, PORCINE 10,000 UNITS/ 10 ML VIAL MC ONE (12:15)
[2024-06-03] MEDS: HEPARIN SODIUM,PORCINE 5,000 UNITS/ML VIAL MC ONE (12:29)
[2024-06-03 17:46] VITALS: BP_SYST 151; PULSE 79; RESP 18; TEMP 97.9; O2SAT 100
[2024-06-03 20:00] VITALS: BP_SYST 157; PULSE 79; RESP 16; TEMP 98.1; O2SAT 99
[2024-06-04 08:11] LABS: BASOPHILS # (AUTO) 0.1 K/uL (0.0-0.2); BASOPHILS % (AUTO) 0.8 % (0.0-2.0); EOSINOPHILS # (AUTO) 0.7 K/uL (0.0-0.4); HEMATOCRIT 22.9 % (36-54); HEMOGLOBIN 7.3 g/dL (14.0-18.0); LYMPHOCYTES # (AUTO) 2.2 K/uL (1.0-5.5); LYMPHOCYTES % (AUTO) 16.7 % (20.5-51.5); MEAN CORPUSCULAR HEMOGLOBIN 27 pg (27-31); MEAN CORPUSCULAR HGB CONC 32 % (32-36); MEAN CORPUSCULAR VOLUME 86 fL (79.0-98.0); MONOCYTES # (AUTO) 1.4 K/uL (0.0-1.0); MONOCYTES % (AUTO) 10.6 % (1.7-9.3); NEUTROPHILS # (AUTO) 8.9 K/uL (1.8-7.7); NEUTROPHILS % (AUTO) 66.9 % (40.0-70.0); PLATELET COUNT (AUTO) 266 K/uL (130-430); RED BLOOD CELL COUNT(AUTO) 2.67 MIL/uL (4.2-6.2); RED CELL DISTRIBUTION WIDTH 13.7 % (9.0-15.0); WHITE BLOOD COUNT (AUTO) 13.3 K/uL (4.8-10.8)
[2024-06-04 08:21] LABS: ERYTHROCYTE SEDIMENTATION RATE 62 MM/HR (0-15)
[2024-06-04 08:28] LABS: ALBUMIN 2.2 g/dL (3.4-4.8); CALCIUM 7.9 mg/dL (8.4-11.0); CREATININE 6.32 mg/dL (0.55-1.30); PHOSPHORUS 4.2 mg/dL (2.7-4.5); POTASSIUM 3.7 mmol/L (3.5-5.1); TOTAL BILIRUBIN 0.5 mg/dL (0.0-1.0); TOTAL PROTEIN, SERUM 6.3 g/dL (6.4-8.3)
[2024-06-04 08:34] VITALS: BP_SYST 159; PULSE 80; RESP 18; TEMP 98.7; O2SAT 100
[2024-06-04] MEDS: BALSAM PERU/CASTOR OIL 56.7 GM OINT...G. TP SCH (09:00)
[2024-06-04 14:50] VITALS: BP_SYST 146; PULSE 70; RESP 18; TEMP 97.2; O2SAT 100
[2024-06-04 16:50] VITALS: BP_SYST 171; PULSE 72; RESP 17; TEMP 97.2; O2SAT 100
[2024-06-04 20:00] VITALS: O2SAT 96
[2024-06-04 23:50] VITALS: BP_SYST 159; PULSE 82; RESP 18; TEMP 98; O2SAT 98
[2024-06-05] VITALS: BP_SYST 122
[2024-06-05 06:33] LABS: HEMATOCRIT 25.2 % (36-54); HEMOGLOBIN 7.9 g/dL (14.0-18.0); MEAN CORPUSCULAR HEMOGLOBIN 27 pg (27-31); MEAN CORPUSCULAR HGB CONC 31 % (32-36); MEAN CORPUSCULAR VOLUME 87 fL (79.0-98.0); PLATELET COUNT (AUTO) 277 K/uL (130-430); RED BLOOD CELL COUNT(AUTO) 2.91 MIL/uL (4.2-6.2); WHITE BLOOD COUNT (AUTO) 14.8 K/uL (4.8-10.8)
[2024-06-05 06:47] LABS: CALCIUM 8.3 mg/dL (8.4-11.0); CREATININE 7.13 mg/dL (0.55-1.30); PHOSPHORUS 4.3 mg/dL (2.7-4.5); POTASSIUM 4.1 mmol/L (3.5-5.1)
[2024-06-05 06:59] LABS: ERYTHROCYTE SEDIMENTATION RATE > 130 MM/HR (0-15)
[2024-06-05 07:51] LABS: ATYPICAL LYMPHOCYTES % 1 % (0-0); BASOPHILS % (MANUAL) 0 % (0-2); EOSINOPHILS % (MANUAL) 5 % (0-7); LYMPHOCYTES % (MANUAL) 16 % (20-46); MONOCYTES % (MANUAL) 10 % (0-11); PLATELET ESTIMATE ADEQUATE (ADEQUATE)
[2024-06-05 09:23] VITALS: BP_SYST 122
[2024-06-05 09:50] VITALS: O2SAT 98
[2024-06-05 11:29] VITALS: BP_SYST 107; PULSE 81; RESP 16; TEMP 97.5; O2SAT 96
[2024-06-05 16:11] VITALS: BP_SYST 141; PULSE 79; RESP 14; TEMP 97.8; O2SAT 97
[2024-06-05 20:00] VITALS: BP_SYST 156; PULSE 80; RESP 20; TEMP 98.6; O2SAT 99
[2024-06-06] VITALS (7 sets, daily range): BP systolic 115–153; PULSE 75–88; RESP 15–18; TEMP 97.4–98.4; O2SAT 96–98
[2024-06-06 06:19] LABS: BASOPHILS # (AUTO) 0.1 K/uL (0.0-0.2); BASOPHILS % (AUTO) 0.9 % (0.0-2.0); EOSINOPHILS # (AUTO) 0.6 K/uL (0.0-0.4); EOSINOPHILS % (AUTO) 4.3 % (0.0-4.0); HEMOGLOBIN 7.9 g/dL (14.0-18.0); LYMPHOCYTES # (AUTO) 2.3 K/uL (1.0-5.5); LYMPHOCYTES % (AUTO) 17.1 % (20.5-51.5); MEAN CORPUSCULAR HEMOGLOBIN 28 pg (27-31); MEAN CORPUSCULAR HGB CONC 32 % (32-36); MEAN CORPUSCULAR VOLUME 87 fL (79.0-98.0); MONOCYTES # (AUTO) 1.5 K/uL (0.0-1.0); MONOCYTES % (AUTO) 10.8 % (1.7-9.3); NEUTROPHILS # (AUTO) 9.2 K/uL (1.8-7.7); NEUTROPHILS % (AUTO) 66.9 % (40.0-70.0); PLATELET COUNT (AUTO) 252 K/uL (130-430); RED BLOOD CELL COUNT(AUTO) 2.87 MIL/uL (4.2-6.2); RED CELL DISTRIBUTION WIDTH 13.6 % (9.0-15.0); WHITE BLOOD COUNT (AUTO) 13.7 K/uL (4.8-10.8)
[2024-06-06 06:38] LABS: CALCIUM 8.1 mg/dL (8.4-11.0); CREATININE 5.38 mg/dL (0.55-1.30); PHOSPHORUS 3.9 mg/dL (2.7-4.5); POTASSIUM 3.9 mmol/L (3.5-5.1)
[2024-06-06 07:33] LABS: ERYTHROCYTE SEDIMENTATION RATE 70 MM/HR (0-15)
[2024-06-06 09:07] LABS: QUANTIFERON TB GOLD Indeterminate (Negative)
[2024-06-06 18:34] LABS: PROTHROMBIN TIME 10.5 SECS (9.5-12.5)
[2024-06-07] VITALS (8 sets, daily range): BP systolic 115–164; PULSE 74–88; RESP 16–18; TEMP 97.2–98.6; O2SAT 96–98
[2024-06-07 07:20] LABS: BASOPHILS # (AUTO) 0.1 K/uL (0.0-0.2); BASOPHILS % (AUTO) 0.9 % (0.0-2.0); EOSINOPHILS # (AUTO) 0.5 K/uL (0.0-0.4); EOSINOPHILS % (AUTO) 4.2 % (0.0-4.0); LYMPHOCYTES # (AUTO) 2.1 K/uL (1.0-5.5); LYMPHOCYTES % (AUTO) 18.8 % (20.5-51.5); MEAN CORPUSCULAR HEMOGLOBIN 27 pg (27-31); MEAN CORPUSCULAR HGB CONC 31 % (32-36); MEAN CORPUSCULAR VOLUME 88 fL (79.0-98.0); MONOCYTES # (AUTO) 1.4 K/uL (0.0-1.0); MONOCYTES % (AUTO) 12.4 % (1.7-9.3); NEUTROPHILS # (AUTO) 7.1 K/uL (1.8-7.7); NEUTROPHILS % (AUTO) 63.7 % (40.0-70.0); PLATELET COUNT (AUTO) 223 K/uL (130-430); RED BLOOD CELL COUNT(AUTO) 2.42 MIL/uL (4.2-6.2); WHITE BLOOD COUNT (AUTO) 11.2 K/uL (4.8-10.8)
[2024-06-07 07:28] LABS: ERYTHROCYTE SEDIMENTATION RATE 34 MM/HR (0-15)
[2024-06-07 07:49] LABS: ALBUMIN 1.8 g/dL (3.4-4.8); CALCIUM 7.5 mg/dL (8.4-11.0); CREATININE 7.01 mg/dL (0.55-1.30); POTASSIUM 4.2 mmol/L (3.5-5.1); TOTAL BILIRUBIN 0.5 mg/dL (0.0-1.0); TOTAL PROTEIN, SERUM 5.6 g/dL (6.4-8.3)
[2024-06-07 07:53] LABS: HEMATOCRIT 21.2 % (36-54); HEMOGLOBIN 6.6 g/dL (14.0-18.0)
[2024-06-07] MEDS ORDERED: BUPIVACAINE /PF 0.25% 10 ML VIAL INJ ONE (12:25)
[2024-06-07] MEDS ORDERED: fentaNYL CITRATE/PF 100 MCG/2 ML AMP ONE (12:25)
[2024-06-07] MEDS ORDERED: MIDAZOLAM HCL 2 MG/2 ML VIAL (VERSED) ONE (12:25)
[2024-06-07] MEDS ORDERED: ONDANSETRON HCL 4 MG/2 ML VIAL ONE (12:25)
[2024-06-07] MEDS ORDERED: METOCLOPRAMIDE HCL 10 MG/2 ML VIAL ONE (12:25)
[2024-06-07] MEDS ORDERED: LR 1,000 ML IV.SOLN IV ONE (12:25)
[2024-06-07] MEDS ORDERED: LIDOCAINE MPF 2% 20 MG/1 ML, 5 ML VIAL INH ONE (12:25)
[2024-06-07] MEDS ORDERED: NS 250 ML IV.SOLN IV ONE (12:25)
[2024-06-07] MEDS ORDERED: HYDROmorphone 2 MG/ML VIAL IVP PRN (14:00)
[2024-06-07] MEDS ORDERED: HYDROmorphone 1 MG/ML INJ. CARTRIDGE IVP PRN (14:00)
[2024-06-07] MEDS: NACL 0.9% 1,000 ML IV SCH (14:00)
[2024-06-07] MEDS ORDERED: ONDANSETRON HCL 4 MG/2 ML VIAL IVP PRN (14:00)
[2024-06-08] VITALS (7 sets, daily range): BP systolic 112–142; PULSE 79–90; RESP 16–18; TEMP 98.1–99; O2SAT 96–98
[2024-06-08 06:50] LABS: CALCIUM 7.6 mg/dL (8.4-11.0); PHOSPHORUS 5.5 mg/dL (2.7-4.5); POTASSIUM 4.4 mmol/L (3.5-5.1)
[2024-06-08 07:45] LABS: BASOPHILS # (AUTO) 0.1 K/uL (0.0-0.2); BASOPHILS % (AUTO) 0.6 % (0.0-2.0); EOSINOPHILS # (AUTO) 0.3 K/uL (0.0-0.4); EOSINOPHILS % (AUTO) 2.3 % (0.0-4.0); LYMPHOCYTES # (AUTO) 1.8 K/uL (1.0-5.5); LYMPHOCYTES % (AUTO) 13.7 % (20.5-51.5); MEAN CORPUSCULAR HEMOGLOBIN 28 pg (27-31); MEAN CORPUSCULAR HGB CONC 32 % (32-36); MEAN CORPUSCULAR VOLUME 86 fL (79.0-98.0); MONOCYTES # (AUTO) 1.5 K/uL (0.0-1.0); MONOCYTES % (AUTO) 11.5 % (1.7-9.3); NEUTROPHILS # (AUTO) 9.2 K/uL (1.8-7.7); NEUTROPHILS % (AUTO) 71.9 % (40.0-70.0); PLATELET COUNT (AUTO) 210 K/uL (130-430); RED BLOOD CELL COUNT(AUTO) 2.49 MIL/uL (4.2-6.2); RED CELL DISTRIBUTION WIDTH 14.4 % (9.0-15.0); WHITE BLOOD COUNT (AUTO) 12.7 K/uL (4.8-10.8)
[2024-06-08 08:08] LABS: CREATININE 8.06 mg/dL (0.55-1.30)
[2024-06-08 08:12] LABS: HEMATOCRIT 21.5 % (36-54); HEMOGLOBIN 6.9 g/dL (14.0-18.0)
[2024-06-08 08:28] LABS: ERYTHROCYTE SEDIMENTATION RATE 33 MM/HR (0-15)
[2024-06-08] MEDS: ACETAMINOPHEN 325 MG TABLET PO PRN (08:59)
[2024-06-08] MEDS ORDERED: NALOXONE HCL 0.4 MG/ML AMP (NARCAN) IVP PRN (11:30)
[2024-06-08] MEDS: HEPARIN SODIUM,PORCINE 5,000 UNITS/ML VIAL ONE (11:48)
[2024-06-08] MEDS: HYDROcodone/ACETAMIN 5-325 MG TAB (NORCO/ VICODIN) PO PRN (12:25)
[2024-06-09 04:00] VITALS: BP_SYST 154; PULSE 76; RESP 18; TEMP 97.8; O2SAT 97
[2024-06-09 06:41] LABS: BASOPHILS # (AUTO) 0.1 K/uL (0.0-0.2); EOSINOPHILS # (AUTO) 0.4 K/uL (0.0-0.4); EOSINOPHILS % (AUTO) 2.5 % (0.0-4.0); HEMOGLOBIN 7.5 g/dL (14.0-18.0); LYMPHOCYTES # (AUTO) 2.2 K/uL (1.0-5.5); LYMPHOCYTES % (AUTO) 15.5 % (20.5-51.5); MEAN CORPUSCULAR HEMOGLOBIN 29 pg (27-31); MEAN CORPUSCULAR HGB CONC 33 % (32-36); MEAN CORPUSCULAR VOLUME 88 fL (79.0-98.0); MONOCYTES # (AUTO) 1.9 K/uL (0.0-1.0); MONOCYTES % (AUTO) 13.2 % (1.7-9.3); NEUTROPHILS # (AUTO) 9.5 K/uL (1.8-7.7); NEUTROPHILS % (AUTO) 67.8 % (40.0-70.0); PLATELET COUNT (AUTO) 182 K/uL (130-430); RED BLOOD CELL COUNT(AUTO) 2.61 MIL/uL (4.2-6.2); RED CELL DISTRIBUTION WIDTH 14.5 % (9.0-15.0)
[2024-06-09 07:09] LABS: ALBUMIN 1.9 g/dL (3.4-4.8); CALCIUM 7.6 mg/dL (8.4-11.0); PHOSPHORUS 5.9 mg/dL (2.7-4.5); POTASSIUM 4.6 mmol/L (3.5-5.1); TOTAL BILIRUBIN 1.1 mg/dL (0.0-1.0); TOTAL PROTEIN, SERUM 5.9 g/dL (6.4-8.3)
[2024-06-09 07:16] LABS: CREATININE 8.54 mg/dL (0.55-1.30)
[2024-06-09 07:32] LABS: ERYTHROCYTE SEDIMENTATION RATE 39 MM/HR (0-15)
[2024-06-09 08:00] VITALS: BP_SYST 122; PULSE 72; RESP 16; TEMP 97.3; O2SAT 97
[2024-06-09 12:00] VITALS: BP_SYST 131; PULSE 76; RESP 18; TEMP 98; O2SAT 99
[2024-06-09] MEDS: ALTEPLASE 2 MG VIAL MC ONE (15:20)
[2024-06-09 16:00] VITALS: BP_SYST 133; PULSE 85; RESP 18; TEMP 97.6; O2SAT 98
[2024-06-09 20:00] VITALS: BP_SYST 171; PULSE 16; PULSE 73; RESP 18; TEMP 98.8; O2SAT 98
[2024-06-10] VITALS: BP_SYST 136; PULSE 83; RESP 18; TEMP 98.9; O2SAT 95
[2024-06-10] MEDS: HYDROcodone/ACETAMIN 10-325 MG TAB PO PRN (01:15)
[2024-06-10 06:09] LABS: BASOPHILS # (AUTO) 0.1 K/uL (0.0-0.2); BASOPHILS % (AUTO) 0.9 % (0.0-2.0); EOSINOPHILS # (AUTO) 0.3 K/uL (0.0-0.4); EOSINOPHILS % (AUTO) 1.7 % (0.0-4.0); HEMOGLOBIN 7.1 g/dL (14.0-18.0); LYMPHOCYTES # (AUTO) 2.2 K/uL (1.0-5.5); LYMPHOCYTES % (AUTO) 13.5 % (20.5-51.5); MEAN CORPUSCULAR HEMOGLOBIN 29 pg (27-31); MEAN CORPUSCULAR HGB CONC 33 % (32-36); MEAN CORPUSCULAR VOLUME 88 fL (79.0-98.0); MONOCYTES # (AUTO) 1.9 K/uL (0.0-1.0); MONOCYTES % (AUTO) 11.7 % (1.7-9.3); NEUTROPHILS # (AUTO) 11.5 K/uL (1.8-7.7); NEUTROPHILS % (AUTO) 72.2 % (40.0-70.0); PLATELET COUNT (AUTO) 181 K/uL (130-430); RED BLOOD CELL COUNT(AUTO) 2.46 MIL/uL (4.2-6.2); RED CELL DISTRIBUTION WIDTH 14.6 % (9.0-15.0); WHITE BLOOD COUNT (AUTO) 15.9 K/uL (4.8-10.8)
[2024-06-10 06:20] LABS: HEMATOCRIT 21.7 % (36-54)
[2024-06-10 06:25] LABS: CALCIUM 7.7 mg/dL (8.4-11.0); PHOSPHORUS 6.5 mg/dL (2.7-4.5); POTASSIUM 4.8 mmol/L (3.5-5.1)
[2024-06-10 06:27] LABS: ERYTHROCYTE SEDIMENTATION RATE 54 MM/HR (0-15)
[2024-06-10 06:50] LABS: CREATININE 9.15 mg/dL (0.55-1.30)
[2024-06-10 08:00] VITALS: BP_SYST 141; PULSE 76; RESP 18; TEMP 98.4; O2SAT 97
[2024-06-10 11:17] VITALS: BP_SYST 149; PULSE 79; RESP 15; TEMP 97.8; O2SAT 97
[2024-06-10 16:43] VITALS: BP_SYST 131; PULSE 71; RESP 14; TEMP 97.9; O2SAT 96
[2024-06-10] MEDS: MIDAZOLAM HCL 2 MG/2 ML VIAL (VERSED) ONE (18:18)
[2024-06-10] MEDS: fentaNYL CITRATE/PF 100 MCG/2 ML AMP ONE ×2 (18:18→20:48)
[2024-06-10] MEDS ORDERED: NS 1000 ML IV.SOLN IV ONE (20:13)
[2024-06-10] MEDS ORDERED: NAFCILLIN SODIUM 2 GM VIAL ONE (20:13)
[2024-06-10] MEDS ORDERED: BUPIVACAINE /PF 0.25% 30 ML VIAL INJ ONE (20:13)
[2024-06-10] MEDS ORDERED: PROPOFOL 200MG/ 20ML VIAL (DIPRIVAN) IV ONE (20:13)
[2024-06-10] MEDS ORDERED: LIDOCAINE PF 1%, 20 MG/2 ML AMP ONE (20:13)
[2024-06-10] MEDS ORDERED: ePHEDrine sulfate 50 MG/ML VIAL ONE (20:13)
[2024-06-10] MEDS ORDERED: ONDANSETRON HCL 4 MG/2 ML VIAL IVP PRN (20:45)
[2024-06-10] MEDS: LR 1,000 ML IV ONE (20:45)
[2024-06-10] MEDS ORDERED: hydrALAZINE HCL 20 MG/ML VIAL IV PRN (20:45)
[2024-06-10] MEDS ORDERED: fentaNYL CITRATE/PF 100 MCG/2 ML AMP IVP PRN ×2 (20:45)
[2024-06-10] MEDS: hydrALAZINE HCL 20 MG/ML VIAL ONE (21:14)
[2024-06-10 22:00] VITALS: O2SAT 95
[2024-06-10 22:02] VITALS: BP_SYST 156; PULSE 97; RESP 18; TEMP 97.1; O2SAT 95
[2024-06-11] VITALS: BP_SYST 158
[2024-06-11 08:00] VITALS: O2SAT 97
[2024-06-11 08:06] LABS: BASOPHILS # (AUTO) 0.1 K/uL (0.0-0.2); BASOPHILS % (AUTO) 0.8 % (0.0-2.0); EOSINOPHILS # (AUTO) 0.2 K/uL (0.0-0.4); EOSINOPHILS % (AUTO) 1.9 % (0.0-4.0); LYMPHOCYTES # (AUTO) 1.1 K/uL (1.0-5.5); LYMPHOCYTES % (AUTO) 8.8 % (20.5-51.5); MEAN CORPUSCULAR HEMOGLOBIN 29 pg (27-31); MEAN CORPUSCULAR HGB CONC 32 % (32-36); MEAN CORPUSCULAR VOLUME 89 fL (79.0-98.0); MONOCYTES # (AUTO) 1.5 K/uL (0.0-1.0); MONOCYTES % (AUTO) 12.1 % (1.7-9.3); NEUTROPHILS # (AUTO) 9.5 K/uL (1.8-7.7); NEUTROPHILS % (AUTO) 76.4 % (40.0-70.0); PLATELET COUNT (AUTO) 205 K/uL (130-430); RED BLOOD CELL COUNT(AUTO) 2.37 MIL/uL (4.2-6.2); RED CELL DISTRIBUTION WIDTH 15.1 % (9.0-15.0); WHITE BLOOD COUNT (AUTO) 12.5 K/uL (4.8-10.8)
[2024-06-11 08:21] LABS: ALBUMIN 1.6 g/dL (3.4-4.8); CALCIUM 7.8 mg/dL (8.4-11.0); PHOSPHORUS 7.5 mg/dL (2.7-4.5); POTASSIUM 4.8 mmol/L (3.5-5.1); TOTAL BILIRUBIN 1.1 mg/dL (0.0-1.0); TOTAL PROTEIN, SERUM 5.8 g/dL (6.4-8.3)
[2024-06-11 08:27] VITALS: BP_SYST 112; PULSE 85; RESP 16; TEMP 98.8; O2SAT 96
[2024-06-11 08:35] LABS: CREATININE 9.65 mg/dL (0.55-1.30)
[2024-06-11 09:05] LABS: ERYTHROCYTE SEDIMENTATION RATE 51 MM/HR (0-15)
[2024-06-11 09:08] LABS: HEMATOCRIT 21.2 % (36-54); HEMOGLOBIN 6.8 g/dL (14.0-18.0)
[2024-06-11 16:41] VITALS: BP_SYST 179; PULSE 82; RESP 16; TEMP 98.2; O2SAT 96
[2024-06-11 20:00] VITALS: BP_SYST 133; PULSE 86; RESP 16; TEMP 98.3; O2SAT 97
[2024-06-11 22:00] VITALS: O2SAT 97
[2024-06-12 00:20] VITALS: BP_SYST 134; PULSE 84; RESP 18; TEMP 98.1; O2SAT 98
[2024-06-12 07:15] VITALS: BP_SYST 138; PULSE 83; RESP 17; TEMP 98; O2SAT 93
[2024-06-12 08:16] LABS: BASOPHILS # (AUTO) 0.1 K/uL (0.0-0.2); EOSINOPHILS # (AUTO) 0.4 K/uL (0.0-0.4); EOSINOPHILS % (AUTO) 3.3 % (0.0-4.0); HEMOGLOBIN 7.1 g/dL (14.0-18.0); LYMPHOCYTES # (AUTO) 1.8 K/uL (1.0-5.5); MEAN CORPUSCULAR HEMOGLOBIN 29 pg (27-31); MEAN CORPUSCULAR HGB CONC 33 % (32-36); MEAN CORPUSCULAR VOLUME 89 fL (79.0-98.0); MONOCYTES # (AUTO) 1.7 K/uL (0.0-1.0); MONOCYTES % (AUTO) 15.7 % (1.7-9.3); NEUTROPHILS # (AUTO) 7.1 K/uL (1.8-7.7); PLATELET COUNT (AUTO) 219 K/uL (130-430); RED BLOOD CELL COUNT(AUTO) 2.46 MIL/uL (4.2-6.2); RED CELL DISTRIBUTION WIDTH 14.7 % (9.0-15.0); WHITE BLOOD COUNT (AUTO) 11.1 K/uL (4.8-10.8)
[2024-06-12 08:24] LABS: CALCIUM 7.2 mg/dL (8.4-11.0); CREATININE 6.11 mg/dL (0.55-1.30); PHOSPHORUS 5.5 mg/dL (2.7-4.5); POTASSIUM 4.3 mmol/L (3.5-5.1)
[2024-06-12 08:26] LABS: TOTAL IRON BIND. CAPACITY 133 ug/dL (250-450)
[2024-06-12 08:38] LABS: HEMATOCRIT 21.8 % (36-54)
[2024-06-12 09:40] LABS: ERYTHROCYTE SEDIMENTATION RATE 51 MM/HR (0-15)
[2024-06-12 09:44] LABS: RETICULOCYTE COUNT 2.4 % (0.5-1.5)
[2024-06-12 10:00] VITALS: O2SAT 93
[2024-06-12 12:54] VITALS: BP_SYST 97; PULSE 86; RESP 16; TEMP 97.6; O2SAT 97
[2024-06-12] MEDS: SOD FERRIC GLUC COMPLEX/SUC 125 MG in NS 100 ML IV SCH (14:35)
[2024-06-12 16:49] VITALS: BP_SYST 149; PULSE 65; RESP 18; TEMP 97.2; O2SAT 96
[2024-06-12 20:00] VITALS: BP_SYST 149; PULSE 87; RESP 18; TEMP 98.4
[2024-06-13] VITALS: BP_SYST 130; PULSE 80; RESP 18; TEMP 98.4; O2SAT 96
[2024-06-13 07:34] LABS: BASOPHILS # (AUTO) 0.1 K/uL (0.0-0.2); BASOPHILS % (AUTO) 0.9 % (0.0-2.0); EOSINOPHILS # (AUTO) 0.5 K/uL (0.0-0.4); EOSINOPHILS % (AUTO) 4.5 % (0.0-4.0); HEMATOCRIT 22.5 % (36-54); HEMOGLOBIN 7.4 g/dL (14.0-18.0); LYMPHOCYTES % (AUTO) 19.5 % (20.5-51.5); MEAN CORPUSCULAR HEMOGLOBIN 29 pg (27-31); MEAN CORPUSCULAR HGB CONC 33 % (32-36); MEAN CORPUSCULAR VOLUME 89 fL (79.0-98.0); MONOCYTES # (AUTO) 1.6 K/uL (0.0-1.0); MONOCYTES % (AUTO) 15.7 % (1.7-9.3); NEUTROPHILS % (AUTO) 59.4 % (40.0-70.0); PLATELET COUNT (AUTO) 263 K/uL (130-430); RED BLOOD CELL COUNT(AUTO) 2.53 MIL/uL (4.2-6.2); RED CELL DISTRIBUTION WIDTH 14.5 % (9.0-15.0); WHITE BLOOD COUNT (AUTO) 10.1 K/uL (4.8-10.8)
[2024-06-13 07:39] LABS: ERYTHROCYTE SEDIMENTATION RATE 62 MM/HR (0-15)
[2024-06-13 07:49] LABS: CALCIUM 7.6 mg/dL (8.4-11.0); CREATININE 6.76 mg/dL (0.55-1.30); POTASSIUM 4.3 mmol/L (3.5-5.1)
[2024-06-13] MEDS ORDERED: EPOETIN ALFA 4,000 UNITS/ML VIAL SUBCUT SCH (09:00)
[2024-06-13 09:03] VITALS: BP_SYST 156; PULSE 84; RESP 18; TEMP 99.1; O2SAT 96
[2024-06-13] MEDS: FOLIC ACID 1 MG TABLET PO SCH (10:25)
[2024-06-13] MEDS: levoFLOXacin 500 MG TABLET PO SCH (10:25)
[2024-06-13] MEDS ORDERED: FOLI-43 PO (12:57)
[2024-06-13] MEDS ORDERED: VANC500F2 IV (12:57)
[2024-06-13] MEDS ORDERED: FERR-31 PO (12:57)
[2024-06-13] MEDS ORDERED: LEVO-62 PO (12:57)
[2024-06-13] MEDS ORDERED: PHO667 PO (12:57)
[2024-06-13 13:22] VITALS: BP_SYST 156; PULSE 84; RESP 18; TEMP 99; O2SAT 97
== END 2024-06-13 17:30 | disposition home health service (06) | DRG 853 ==
LOC: SED 12:05 → SMU 15:56 → STU 17:33 → SMU 05-30 14:30
PROVIDERS: ADMIT Preventive Medicine Preventive Medicine/Occupational Environmental Medicine; ATTEND Preventive Medicine Preventive Medicine/Occupational Environmental Medicine
PROC: 02HV33Z Insertion of Infusion Device into Superior Vena Cava, Percutaneous Approach (ICD-10-PCS; 2024-05-28)
PROC: B548ZZA Ultrasonography of Superior Vena Cava, Guidance (ICD-10-PCS; 2024-05-28)
PROC: 5A1D70Z Performance of Urinary Filtration, Intermittent, Less than 6 Hours Per Day (ICD-10-PCS; 2024-05-28)
PROC: 5A1D70Z Performance of Urinary Filtration, Intermittent, Less than 6 Hours Per Day (ICD-10-PCS; 2024-05-29)
PROC: 5A1D70Z Performance of Urinary Filtration, Intermittent, Less than 6 Hours Per Day (ICD-10-PCS; 2024-05-30)
PROC: 0JBD0ZZ Excision of Right Upper Arm Subcutaneous Tissue and Fascia, Open Approach (ICD-10-PCS; principal; 2024-05-31 12:08)
PROC: 5A1D70Z Performance of Urinary Filtration, Intermittent, Less than 6 Hours Per Day (ICD-10-PCS; 2024-06-01)
PROC: 5A1D70Z Performance of Urinary Filtration, Intermittent, Less than 6 Hours Per Day (ICD-10-PCS; 2024-06-03)
PROC: 5A1D70Z Performance of Urinary Filtration, Intermittent, Less than 6 Hours Per Day (ICD-10-PCS; 2024-06-05)
PROC: 0JH63XZ Insertion of Tunneled Vascular Access Device into Chest Subcutaneous Tissue and Fascia, Percutaneous Approach (ICD-10-PCS; 2024-06-07)
PROC: 02HV33Z Insertion of Infusion Device into Superior Vena Cava, Percutaneous Approach (ICD-10-PCS; 2024-06-07)
PROC: B5181ZA Fluoroscopy of Superior Vena Cava using Low Osmolar Contrast, Guidance (ICD-10-PCS; 2024-06-07)
PROC: B548ZZA Ultrasonography of Superior Vena Cava, Guidance (ICD-10-PCS; 2024-06-07)
PROC: 30233N1 Transfusion of Nonautologous Red Blood Cells into Peripheral Vein, Percutaneous Approach (ICD-10-PCS; 2024-06-07)
PROC: 0JPTXXZ Removal of Tunneled Vascular Access Device from Trunk Subcutaneous Tissue and Fascia, External Approach (ICD-10-PCS; 2024-06-10)
PROC: 0JH63XZ Insertion of Tunneled Vascular Access Device into Chest Subcutaneous Tissue and Fascia, Percutaneous Approach (ICD-10-PCS; 2024-06-10)
PROC: 02HV33Z Insertion of Infusion Device into Superior Vena Cava, Percutaneous Approach (ICD-10-PCS; 2024-06-10)
PROC: B5181ZA Fluoroscopy of Superior Vena Cava using Low Osmolar Contrast, Guidance (ICD-10-PCS; 2024-06-10)
PROC: B548ZZA Ultrasonography of Superior Vena Cava, Guidance (ICD-10-PCS; 2024-06-10)
DX: A41.01 Sepsis due to Methicillin susceptible Staphylococcus aureus (principal); E43 Unspecified severe protein-calorie malnutrition; J18.9 Pneumonia, unspecified organism; N17.0 Acute kidney failure with tubular necrosis; E87.1 Hypo-osmolality and hyponatremia; L02.413 Cutaneous abscess of right upper limb; L02.212 Cutaneous abscess of back [any part, except buttock and flank]; E87.20 Acidosis, unspecified; N18.4 Chronic kidney disease, stage 4 (severe); L03.113 Cellulitis of right upper limb; E11.22 Type 2 diabetes mellitus with diabetic chronic kidney disease; I12.9 Hypertensive chronic kidney disease with stage 1 through stage 4 chronic kidney disease, or unspecified chronic kidney disease; E83.39 Other disorders of phosphorus metabolism; E86.0 Dehydration; E78.5 Hyperlipidemia, unspecified; D63.1 Anemia in chronic kidney disease; B36.9 Superficial mycosis, unspecified; E88.09 Other disorders of plasma-protein metabolism, not elsewhere classified; D75.839 Thrombocytosis, unspecified; E87.5 Hyperkalemia; E83.52 Hypercalcemia; E83.51 Hypocalcemia; F32.A Depression, unspecified; N20.0 Calculus of kidney; Z89.511 Acquired absence of right leg below knee; Z79.899 Other long term (current) drug therapy; Z99.2 Dependence on renal dialysis; Z68.22 Body mass index [BMI] 22.0-22.9, adult
CPT/HCPCS: 36415; 70490; 71045; 71250-TC; 73030; 76000; 76770; 80048; 80053; 80074; 80076; 82272; 82550; 82948; 83540; 83550; 83605; 83735; 83970; 84100; 85007; 85025; 85027; 85044; 85610; 85651; 85730; 86480; 86886; 86900; 86901; 86920; 87040; 87070; 87075; 87081; 87186; 87210; 87350; 88304; 90935; 90937; 93005; 93306; 96365; 97110-GP; 97116-GP; 97530-GP; 99285; C1750; G0378; J0360; J0692; J1644; J1956; J2003; J2020; J2060; J2250; J2405; J2470; J2543; J2704; J2765; J2916; J2997; J3010; J3490; J7030; J7050; J7060; J7120; P9021